=== PATIENT | male | born 1990 | race African-American/Black ===

== ENCOUNTER 2018-09-05 19:47 | Emergency (ER) | payer SELFPAY ==
[2018-09-05 21:42] LABS: Urine Blood NEGATIVE (NEG); Urine Glucose NEGATIVE (NEG); Urine Protein NEGATIVE (NEG); Urine pH 6.5 (5.0-7.0)
[2018-09-05 21:50] LABS: Urine Bacteria <20 /HPF (NONE SEEN); Urine Culture Reflex Order NOT NEEDED; Urine RBC NONE SEEN /HPF (NONE SEEN)
[2018-09-05] MEDS ORDERED: IBUPROFEN 400 MG TAB ONE (21:57)
[2018-09-05] MEDS ORDERED: IBUPROFEN 200 MG TAB PO ONE (21:58)
--- NOTE | 2018-09-05 22:08 | ER ---
Nurse's Notes [facility] Name: Cortez Bella Age: 27 yrs Sex: Male : 1990 Arrival Date: 09/05/2018 Time: 19:50 Bed 24 Private MD: Diagnosis: Low back pain Presentation: 09/05 20:01 Presenting complaint: Patient states: Pain to mid back that started 3 days ago and is aj worse with eating and when looking down. Denies injury or trauma. Transition of care: patient was not received from another setting of care. Onset of symptoms was September 02, 2018. Risk Assessment: Do you want to hurt yourself or someone else? Patient reports no desire to harm self or others. Initial Sepsis Screen: Does the patient meet any 2 criteria? No. Patient's initial sepsis screen is negative. Does the patient have a suspected source of infection? No. Patient's initial sepsis screen is negative. Care prior to arrival: None. 20:01 Method Of Arrival: Ambulatory aj 20:01 Acuity: HIWOT 4 aj Triage Assessment: 20:02 General: Appears in no apparent distress. comfortable, Behavior is calm, cooperative, aj appropriate for age. Pain: Complains of pain in thoracic area. Neuro: Level of Consciousness is awake, alert, obeys commands, Oriented to person, place, time, situation, Appropriate for age. Respiratory: Airway is patent Respiratory effort is even, unlabored, Respiratory pattern is regular, symmetrical. Derm: Skin is intact, is healthy with good turgor, Skin is pink, warm \T\ dry. normal. Musculoskeletal: Reports pain in thoracic area. Historical: - Allergies: 20:02 No Known Allergies; aj - Home Meds: 20:02 None [Active]; aj - PMHx: 20:02 None; aj - PSHx: 20:02 Right elbow; aj - Immunization history:: Adult Immunizations up to date. - Social history:: Smoking status: Patient uses tobacco products, denies chronic smoking, but will smoke occasionally. - Ebola Screening: : Patient negative for fever greater than or equal to 101.5 degrees Fahrenheit, and additional compatible Ebola Virus Disease symptoms Patient denies exposure to infectious person Patient denies travel to an Ebola-affected area in the 21 days before illness onset No symptoms or risks identified at this time. - Family history:: not pertinent. Screenin:00 Abuse screen: Denies threats or abuse. Nutritional screening: No deficits noted. tl3 Tuberculosis screening: No symptoms or risk factors identified. Fall Risk None identified. Assessment: 21:00 General: Appears in no apparent distress. comfortable, Behavior is calm, cooperative, tl3 appropriate for age. Pain: Complains of pain in left mid back and thoracic area. Neuro: Level of Consciousness is awake, alert, obeys commands, Oriented to person, place, time, situation, Appropriate for age. Cardiovascular: Patient's skin is warm and dry. Respiratory: Airway is patent Respiratory effort is even, unlabored, Respiratory pattern is regular, symmetrical. 22:25 Reassessment: Patient appears in no apparent distress at this time. No changes from tl3 previously documented assessment. Patient and/or family updated on plan of care and expected duration. Pain level reassessed. Patient is alert, oriented x 3, equal unlabored respirations, skin warm/dry/pink. Vital Signs: 20:02 BP 149 / 82; Pulse 65; Resp 20; Temp 98.0; Pulse Ox 100% on R/A; Weight 74.84 kg; aj Height 5 ft. 9 in. (175.26 cm); 22:25 BP 135 / 80; Pulse 68; Resp 18; Pulse Ox 100% on R/A; tl3 20:02 Body Mass Index 24.37 (74.84 kg, 175.26 cm) ED Course: 19:50 Patient arrived in ED. am2 20:02 Triage completed. aj 20:02 Arm band placed on left wrist. Patient placed in waiting room, Patient notified of wait aj time. 21:00 Marlon Marte MD is Attending Physician. [facility] 21:00 Patient has correct armband on for positive identification. Bed in low position. tl3 21:00 No provider procedures requiring assistance completed. Patient did not have IV access tl3 during this emergency room visit. 21:03 Ann Marie Loyd, RN is Primary Nurse. tl3 21:20 Urine collected: clean catch specimen, clear, guilherme colored. jp3 21:[address] via wheelchair. vm2 21:37 UA MICROSCOPIC Sent. jp3 21:37 Urine Dipstick--Ancillary (enter results) Sent. jp3 21:52 CT completed. Patient tolerated procedure well. Patient moved back from CT. vm2 21:58 CT Stone Protocol In Process Unspecified. EDMS Administered Medications: 22:09 Drug: Motrin 600 mg Route: PO; tl3 22:23 Follow up: Response: No adverse reaction tl3 Outcome: 22:07 Discharge ordered by . shannon 22:25 Discharged to home ambulatory. tl3 22:25 Condition: stable 22:25 Discharge instructions given to patient, Instructed on discharge instructions, follow up and referral plans. Demonstrated understanding of instructions, follow-up care, medications, Prescriptions given X 3. 22:26 Patient left the ED. tl3 Signatures: Dispatcher [employer] EDIleana Ulloa, RN RN Marlon Hilliard MD MD cha Moreno, Amanda am2 Haley Rodriguez 2 Ann Marie Loyd RN RN tl3 Frank Molina jp3 Corrections: (The following items were deleted from the chart) 20:04 20:01 Acuity: HIWOT 3 aj aureliano 21:42 21:37 URINALYSIS+U.LAB.BRZ drawn and sent. jp3 EDMS
--- NOTE | 2018-09-05 22:08 | EDPHYS ---
Physician Documentation [facility] Name: Cortez Bella Age: 27 yrs Sex: Male : 1990 Arrival Date: 09/05/2018 Time: 19:50 Bed 24 Private MD: ED Physician Marlon Marte HPI: 09/05 21:32 This 27 yrs old Black Male presents to ER via Ambulatory with complaints of pain under shannon ribs. 21:32 The patient complains of pain in the left mid back. The pain does not radiate. Onset: shannon The symptoms/episode began/occurred 3 day(s) ago. Modifying factors: The symptoms are alleviated by remaining still, the symptoms are aggravated by movement. The patient presents with pain that is acute, with no known mechanism of injury. The symptoms are located in the left mid back. Onset: The symptoms/episode began/occurred 1 month(s) ago. Historical: - Allergies: 20:02 No Known Allergies; aj - Home Meds: 20:02 None [Active]; aj - PMHx: 20:02 None; aj - PSHx: 20:02 Right elbow; aj - Immunization history:: Adult Immunizations up to date. - Social history:: Smoking status: Patient uses tobacco products, denies chronic smoking, but will smoke occasionally. - Ebola Screening: : Patient negative for fever greater than or equal to 101.5 degrees Fahrenheit, and additional compatible Ebola Virus Disease symptoms Patient denies exposure to infectious person Patient denies travel to an Ebola-affected area in the 21 days before illness onset No symptoms or risks identified at this time. - Family history:: not pertinent. ROS: 21:32 Constitutional: Negative for fever, chills, and weight loss, Eyes: Negative for injury, sahnnon pain, redness, and discharge, ENT: Negative for injury, pain, and discharge, Neck: Negative for injury, pain, and swelling, Cardiovascular: Negative for chest pain, palpitations, and edema, Respiratory: Negative for shortness of breath, cough, wheezing, and pleuritic chest pain, Abdomen/GI: Negative for abdominal pain, nausea, vomiting, diarrhea, and constipation, : Negative for injury, bleeding, discharge, and swelling, MS/Extremity: Negative for injury and deformity, Skin: Negative for injury, rash, and discoloration, Neuro: Negative for headache, weakness, numbness, tingling, and seizure. 21:32 Back: Positive for pain at rest, pain with movement, flank pain, on the left. Exam: 21:32 Constitutional: This is a well developed, well nourished patient who is awake, alert, shannon and in no acute distress. Head/Face: Normocephalic, atraumatic. Eyes: Pupils equal round and reactive to light, extra-ocular motions intact. Lids and lashes normal. Conjunctiva and sclera are non-icteric and not injected. Cornea within normal limits. Periorbital areas with no swelling, redness, or edema. ENT: Nares patent. No nasal discharge, no septal abnormalities noted. Tympanic membranes are normal and external auditory canals are clear. Oropharynx with no redness, swelling, or masses, exudates, or evidence of obstruction, uvula midline. Mucous membranes moist. Neck: Trachea midline, no thyromegaly or masses palpated, and no cervical lymphadenopathy. Supple, full range of motion without nuchal rigidity, or vertebral point tenderness. No Meningismus. Chest/axilla: Normal chest wall appearance and motion. Nontender with no deformity. No lesions are appreciated. Cardiovascular: Regular rate and rhythm with a normal S1 and S2. No gallops, murmurs, or rubs. Normal PMI, no JVD. No pulse deficits. Respiratory: Lungs have equal breath sounds bilaterally, clear to auscultation and percussion. No rales, rhonchi or wheezes noted. No increased work of breathing, no retractions or nasal flaring. Abdomen/GI: Soft, non-tender, with normal bowel sounds. No distension or tympany. No guarding or rebound. No evidence of tenderness throughout. Male : Normal genitalia with no discharge or lesions. Skin: Warm, dry with normal turgor. Normal color with no rashes, no lesions, and no evidence of cellulitis. MS/ Extremity: Pulses equal, no cyanosis. Neurovascular intact. Full, normal range of motion. Neuro: Awake and alert, GCS 15, oriented to person, place, time, and situation. Cranial nerves II-XII grossly intact. Motor strength 5/5 in all extremities. Sensory grossly intact. Cerebellar exam normal. Normal gait. Psych: Awake, alert, with orientation to person, place and time. Behavior, mood, and affect are within normal limits. 21:32 Back: pain, that is mild, that is moderate, ROM is painful, normal spinal alignment noted, CVA tenderness, is absent, muscle spasm, is not present, Straight leg raises: right lower extremity does not illicit pain, left lower extremity does not illicit pain. Vital Signs: 20:02 BP 149 / 82; Pulse 65; Resp 20; Temp 98.0; Pulse Ox 100% on R/A; Weight 74.84 kg; aj Height 5 ft. 9 in. (175.26 cm); 22:25 BP 135 / 80; Pulse 68; Resp 18; Pulse Ox 100% on R/A; tl3 20:02 Body Mass Index 24.37 (74.84 kg, 175.26 cm) aj MDM: 21:00 [facility] 21:34 Data reviewed: vital signs, nurses notes, lab test result(s), radiologic studies, CT shannon scan. 09/05 21:11 Order name: UA MICROSCOPIC; Complete Time: 22:06 tl3 09/05 21:23 Order name: Urine Dipstick--Ancillary (enter results); Complete Time: 22:06 mw2 09/05 21:32 Order name: CT Stone Protocol shannon Administered Medications: 22:09 Drug: Motrin 600 mg Route: PO; tl3 22:23 Follow up: Response: No adverse reaction tl3 Disposition: 09/05/18 22:07 Discharged to Home. Impression: Low back pain. - Condition is Stable. - Discharge Instructions: Back Pain, Adult, Musculoskeletal Pain, Back Injury Prevention, Rjxr-[id number], Back Pain, Adult, Kvon-vx-Vgku. - Prescriptions for Ibuprofen 600 mg Oral Tablet - take 1 tablet by ORAL route every 8 hours As needed take with food; 21 tablet. Skelaxin 800 mg Oral Tablet - take 1 tablet by ORAL route every 6 hours As needed; 40 tablet. Tylenol- Codeine #3 300-30 mg Oral Tablet - take 2 tablets by ORAL route every 6 hours As needed; 24 tablet. - Medication Reconciliation Form, Thank You Letter, Antibiotic Education, Prescription Opioid Use form. - Follow up: Private Physician; When: 2 - 3 days; Reason: Recheck today's complaints, Continuance of care, Re-evaluation by your physician. - Problem is new. - Symptoms have improved. Signatures: Dispatcher [employer] SALOMON Serrano Amanda, RN RN Marlon Hilliard MD MD cha Lowrey, Tammy, RN RN tl3 Corrections: (The following items were deleted from the chart) 21:31 21:25 Chest Pa And Lat (2 Views)+RAD.RAD.BRZ ordered. EDID EDMS 21:42 21:12 URINALYSIS+U.LAB.BRZ ordered. EDID EDMS 22:26 22:07 09/05/2018 22:07 Discharged to Home. Impression: Low back pain. Condition is tl3 Stable. Discharge Instructions: Back Pain, Adult, Musculoskeletal Pain, Back Injury Prevention, Aemh-rz-Itbf, Back Pain, Adult, Glps-nu-Lehg. Prescriptions for Ibuprofen 600 mg Oral Tablet - take 1 tablet by ORAL route every 8 hours As needed take with food; 21 tablet, Skelaxin 800 mg Oral Tablet - take 1 tablet by ORAL route every 6 hours As needed; 40 tablet, Tylenol-Codeine #3 300-30 mg Oral Tablet - take 2 tablets by ORAL route every 6 hours As needed; 24 tablet. and Forms are Medication Reconciliation Form, Thank You Letter, Antibiotic Education, Prescription Opioid Use. Follow up: Private Physician; When: 2 - 3 days; Reason: Recheck today's complaints, Continuance of care, Re-evaluation by your physician. Problem is new. Symptoms have improved. shannon
--- NOTE | 2018-09-06 11:17 | RAD REPORT ---
EXAM DESCRIPTION: CT - Stone Protocol - 09/05/2018 10:16 pm CLINICAL HISTORY: 27 years Male, FLANK PAIN COMPARISON: None. TECHNIQUE: Contiguous axial images of the abdomen and pelvis were obtained followed by reconstruction images. T his exam was performed according to our departmental dose-optimization program, which includes automa meghann exposure control, adjustment of the mA and/or kV according to patient size and/or less of iterati ve reconstruction technique. FINDINGS: Lung bases: Lung bases are clear. Heart: Visualized heart is within normal limits in size. Gallbladder: Unremarkable. No gallstones. No gallbladder wall thickening or pericholecystic fluid. Spleen: Unremarkable. Pancreas: Pancreas is unremarkable. Adrenal glands: Within normal limits. Bladder: Unremarkable. Pelvic organs: No acute abnormality. Vasculature structures: Within normal limits. Bladder: Unremarkable. Pelvic organs: No acute abnormality. Vascular structures: Within normal limits. Peritoneum: No free fluid. Lymph nodes: No abnormal lymph nodes. Stomach/small bowel/colon: Stomach is unremarkable. Small bowel is unremarkable. Russell is unremarkabl e. Appendix: Appendix is seen and is within normal limits. Bones: No acute osseous abnormality. Chronic bilateral L5 pars defects. No spondylosis. Soft tissues: Unremarkable. IMPRESSION: No acute intra-abdominal abnormality. No nephrolithiasis. No hydronephrosis. Normal appe ndix. Electronically signed by: Jacob Thorpe MD 09/05/2018 10:04 PM REFRIGERATED CARGO CLERK Due to temporary technical issues with the PACS/Fluency reporting system, reports are being signed by the in house radiologist as a courtesy to ensure prompt reporting. The interpreting radiologist is f ully responsible for the content of the report.
== END 2018-09-05 22:26 | disposition home or self-care (01) ==
LOC: ER 19:47
DX: M54.5 Low back pain (principal); Z72.0 Tobacco use
CPT/HCPCS: 74176; 76377; 81003; 81015; 99284

== ENCOUNTER 2021-11-08 16:04 | Emergency (ER) | payer SELFPAY ==
--- OUTSIDE RECORDS SUMMARY | 2021-11-08 16:06 | XMS REPORT | Continuity of Care Document ---
:1990 Author Organization [facility] t Address [address] [place] [address] Care Team Providers Name Role Phone Pcp, Does Not Have A Primary Care Physician Unknown Attending Clinician Unavailable Payers Payer Name Policy Type Policy Number Effective Date Expiration Date S ource Problems Condition Condition Condition Status Onset Resolution Last Treating Co mments Source Name Details Category Date Date Treatment Clinician Date No known No known Disease Unive rs active active ity of problems problems [facility] Allergies, Adverse Reactions, Alerts Allergy Allergy Status Severity Reaction(s) Onset Inactive Treating Comm ents Source Name Type Date Date Clinician NO KNOWN Drug Active [facility] ALLERGIE Class ity of [facility] Social History Social Habit Start Date Stop Date Quantity Comments Source Sex Assigned At [birth year] [facility] 00:00:00 00:00:[address] [facility] Smoking Status Start Date Stop Date Source Unknown if ever smoked [facility] Medications Ordered Filled Start Stop Current Ordering Indication Dosage Frequency Signature Comments Components Source Medication Medication Date Date Medication? Clinician (SIG) Name Name No known No Univers medications -18 ity of 07:44: [place] [address] [facility] Procedures This patient has no known procedures. Encounters Start End Encounter Admission Attending Care Care Encounter Source Date/Time Date/Time Type Type Clinicians Facility Department ID 2021-11-08 2021-11-08 Telephone Unknown, [facility] [id number] [facility] 00:00:00 00:00:00 Attending HEALTH [id number] ity [facility] [id number] Wilber as ANTHONY?BLEA [id number] Nm alea [address] MEDICAL OFFICE BUILDING 2020-04-17 2020-04-17 Emergency X [facility] ERT [id number] Univers 07:33:00 07:33:00 ity [facility] Results This patient has no known results.
--- NOTE | 2021-11-08 17:22 | ER ---
Nurse's Notes [facility] Name: Cortez Bella Age: 31 yrs Sex: Male : 1990 Arrival Date: 11/08/2021 Time: 16:08 Bed Waiting Private MD: Diagnosis: ED Course: 11/08 16:08 Patient arrived in ED. ja2 16:50 Patient's name was called from ER lobby. No response. jd3 17:12 Patient's name was called from ER lobby. No response. jd3 17:21 Patient's name was called from ER lobby. No response. Unable to locate patient. Will jd3 disposition as left without being seen by a provider. Administered Medications: No medications were administered Outcome: 17:22 Patient left the ED. jd3 Signatures: Dontrell Panda RN RN jTess Miller
== END 2021-11-08 17:22 | disposition left against medical advice (07) ==
LOC: ER 16:04
DX: Z02.9 Encounter for administrative examinations, unspecified (principal)